=== PATIENT | male | born 1965 | race Asian ===

== ENCOUNTER 2024-07-21 12:52 | Emergency (ER) | payer OTHER, SELFPAY ==
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
[2024-07-21 12:54] VITALS: BP 197/102; PULSE 86; RESP 20; TEMP 36.2; O2SAT 100
--- NOTE | 2024-07-21 13:13 | PC.NURSE ---
Pt c/o 04/23 R. knee pain. Prior surgery to area. Pt able to ambulate. No swelling. ROM intact. Pt also c/o bilateral shoulder pain, and C, T and L spine pain upon palpation. C-collar previously placed on pt.
[2024-07-21 13:14] VITALS: BP 159/101; PULSE 83; RESP 16; O2SAT 100
--- NOTE | 2024-07-21 13:15 | PC.NURSE ---
Ice bag applied to R.knee.
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
[2024-07-21 14:54] VITALS: BP 146/92; PULSE 67; RESP 16; O2SAT 100
[2024-07-21 15:35] VITALS: BP 153/89; PULSE 75; RESP 16; O2SAT 100
[2024-07-21] MEDS: ACETAMINOPHEN 500 MG TABLET 1000 MG PO (15:36)
[2024-07-21] MEDS: KETOROLAC 30 MG/ML VIAL (*BKC) IM (15:37)
== END 2024-07-21 15:50 | disposition home or self-care (01) ==
PROVIDERS: Emergency Provider Physician Assistant
DX: S16.1XXA Strain of muscle, fascia and tendon at neck level, initial encounter (principal); S86.911A Strain of unspecified muscle(s) and tendon(s) at lower leg level, right leg, initial encounter; M19.011 Primary osteoarthritis, right shoulder; M19.012 Primary osteoarthritis, left shoulder; M47.812 Spondylosis without myelopathy or radiculopathy, cervical region; M17.11 Unilateral primary osteoarthritis, right knee; M47.816 Spondylosis without myelopathy or radiculopathy, lumbar region; M47.814 Spondylosis without myelopathy or radiculopathy, thoracic region; V68.5XXA Driver of heavy transport vehicle injured in noncollision transport accident in traffic accident, initial encounter
CPT/HCPCS: 70450; 72125; 72128; 72131; 73030; 73564; 96372; 99284; A9270; J1885